=== PATIENT | male | born 1965 | race Caucasian/White ===

== ENCOUNTER 2017-01-11 16:27 | Emergency (ER) | payer OTHER, MEDICARE ==
[~2017-01-11] VITALS: Ht 180.3 cm; Wt 88.5 kg
[~2017-01-11 16:27] MED LIST: ALPRAZOLAM1 MG PO; AMOXIL500 MG PO; ATIVAN1 MG PAS; ESOMEPRAZOLE MA40 MG PO; FOLIC ACID 1 MG PO; HYDROCODONE BIT PO; HYDROXYZINE50 MG PO; JANUVIA 50MG50 MG; LANTUS INS100 UNITS/ SC; MEDROL4 M2 PO; METFORMIN HCL500 MG; MULTIVITAMIN1 TAB PO; NEURONTIN100 MG PO; NEURONTIN300 M1 PO; NORCO 325 MG-101 TAB PO; NORCO 5-325 TA1 EACH PO; NOVOLOG FLEX100 U/ML SC; NOVOLOG100 U/ML SC; TRAMADOL50 MG PO; TRAZODONE100 MG PO; Theragran Vitamins PO; VICODIN5-300 PO; VITAMIN B1100 MG PO; XANAX 0.5MG TA0.5 MG PO
[2017-01-11 18:40] LABS: ABSOLUTE BASOPHIL COUNT 0 /CUMM (0.0-0.2); ABSOLUTE EOSINOPHIL COUNT 0.3 /CUMM (0.0-0.7); ABSOLUTE GRANULOCYTE CT 7.3 /CUMM (1.4-6.5); ABSOLUTE LYMPH COUNT 3.1 /CUMM (1.2-3.4); ABSOLUTE MONOCYTE COUNT 0.8 /CUMM (0.10-0.60); BASOPHIL % 0.4 % (0.0-2.0); EOSINOPHIL % 2.8 % (0-5); GRANULOCYTE % 62.5 % (42.2-75.2); MEAN CORPUSCULAR HGB 31.5 PG (27.0-31.0); MEAN CORPUSCULAR HGB CONC 34.3 G/DL (33.0-37.0); MEAN CORPUSCULAR VOLUME 91.9 FL (80.0-94.0); MEAN PLATELET VOLUME 7.3 FL (7.4-10.4); PLATELET COUNT 297 /CUMM (130-400); RBC DISTRIBUTION WIDTH 12.8 % (11.5-14.5); RED BLOOD CELL CT 4.79 /CUMM (4.70-6.10); WHITE BLOOD CELL COUNT 11.6 /CUMM (4.8-10.8)
--- NOTE | 2017-01-11 18:41 | ED PSYCHIATRIC COMPLAINT ---
History of Present Illness General Chief Complaint: Psychiatric Related Complaint Stated Complaint: BIBA FOR PSYCH EVAL, ETOH Source: patient Exam Limitations: no limitations Vital Signs & Intake/Output Vital Signs & Intake/Output Vital Signs Date Time Temp Pulse Resp B/P Pulse O2 O2 Flow FiO2 Ox Delivery Rate 01/11 1934 96.9 99 20 121/72 01/11 1934 96.9 99 20 121/72 95 Room Air 01/11 1700 96.9 115 18 149/88 01/11 1653 96.9 115 18 149/88 95 Room Air Allergies Coded Allergies: codeine (Mild, RASH 12/25/15) Reconcile Medications Esomeprazole Magnesium 40 MG CAPSULE.DR 1 CAP PO BID GI (Reported) Gabapentin (Neurontin) 300 MG CAPSULE 1 CAP PO QHS PRN ARM/SHOULDER PAIN Gabapentin (Neurontin) 100 MG CAP 100 MG PO Q8 nueropathic pain Hydrocodone/Acetaminophen (Sunshine 5-325 Tablet) 1 EACH TABLET 1-2 TAB PO Q6P PRN PAIN Hydroxyzine Hydrochloride (Hydroxyzine) 50 MG TAB 1 TAB PO TID ANXIETY ( Reported) Insulin Aspart, Recombinant (Novolog) 100 U/ML JAZMINE 0 UNITS SC TIDAC GLUCOSE CONTROL (Reported) BLOOD SUGAR # OF UNITS < 80 NONE 80-150 NONE 151-200 1 UNIT 201-250 2 UNITS 251-300 3 UNITS 301-350 4 UNITS 351-400 6 UNITS >400 8 UNITS and call Insulin-Lantus (Lantus Insulin) 100 UNITS/ML NYA 30 U SC QHS DIABETES Methylprednisolone. 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 PT STS HE DRANK ABOUT 2 BEERS AND 3 SHOTS TODAY AND GOT INTO AN [employer] [place] SOMEONE AND PD WAS CALLED AND HIS MOM WAS NOTIFIED AND ALL WAS SETTLED WITH PD. PT SUSTAINED A LAC TO HIS RT LOWER GUMS, LEFT RESTORATIONIST AND LT INNER EAR FROM [employer]. PT STS HE CAME IN TO SPEAK WITH CRISIS VOLUNTARILY AND NOT HERE FOR ANY OF HIS OTHER SYMPTOMS WHICH INCLUDE A BLOOD SUGAR OF 360 OM FIELD. PT ARRIVES A/O X3 AND STS PAIN IS LESS THAN A 3/10 AND HIS ONLY COMPLAINTS IS WANTING TO SPEAK TO CRISIS. Triage Nurses Notes Reviewed? yes HPI: Patient presents for evaluation of worsening anxiety over the past 3-4 weeks. Patient states he has gotten into trouble with his family the cords and the police. He states that everybody has been "telling him to stay". He denies SI or HI. He denies drug use but admits to alcohol use (last alcohol beverage at about 12:00 today). Because he has been drinking he stopped his medications for anxiety. Past History Travel History Traveled to [place] past 21 day No Medical History Any Pertinent Medical History? see below for history Neurological: NONE EENT: NONE Cardiovascular: NONE Respiratory: NONE Gastrointestinal: NONE Hepatic: NONE Renal: NONE (iddm) Musculoskeletal: chronic back pain Psychiatric: alcohol dependence, anxiety and depression in the setting of substance abuse. Endocrine: diabetes Blood Disorders: NONE Cancer(s): NONE MARBLE COPER/Reproductive: NONE History of MRSA: No History of VRE: No History of CDIFF: No Surgical History Surgical History: N RIGHT KNEE REPLACEMENT TOTAL HIP REPLACEMENT (HIP Surgery, Knee surgery) Psychosocial History Who do you live with Mother Services at Home None What is your primary language Swedish Tobacco Use: Current Daily Use Daily Tobacco Use Amount/Type: => 5 Cigarettes daily ETOH Use: alcoholic Illicit Drug Use: marijuana Family History Family History, If Any: MOTHER FH: diabetes mellitus Hx Contributory? No Review of Systems Review of Systems Constitutional: Reports: no symptoms. EENTM: Reports: no symptoms. Respiratory: Reports: no symptoms. Cardiovascular: Reports: no symptoms. GI: Reports: no symptoms. Genitourinary: Reports: no symptoms. Musculoskeletal: Reports: no symptoms. Skin: Reports: no symptoms. Neurological/Psychological: Reports: see HPI. Hematologic/Endocrine: Reports: no symptoms. Immunologic/Allergic: Reports: no symptoms. All Other Systems: Reviewed and Negative Physical Exam Physical Exam General Appearance: see below Neurological/Psychiatric: see below Comments: General: Alert, calm, cooperative, faint EtOH-like odor Head: Normocephalic, atraumatic Eyes: Normal inspection, no nystagmus, EOMI Ears: Normal inspection Nose: Normal inspection Throat: Moist mucosa Neck: Supple, no goiter Heart: Regular rate and rhythm, no murmurs rubs or gallops Lungs: Clear to auscultation bilaterally with good air entry Abdomen: Soft nontender nondistended, normal bowel sounds Chest: Nontender Extremities: Normal range of motion grossly, no tremors present, no cyanosis clubbing or edema of the upper extremities Neurologic: cranial nerves II through XII grossly intact, speech clear, gait normal Psychiatric: No apparent delusions or hallucinations, no pressured speech or thought blocking SAD PERSONS Done? patient not suicidal Progress Differential Diagnosis: drug intoxication, depression Plan of Care: Orders Procedure Date/time Status ED CRISIS PSYCH CONSULT 01/12 1840 Active URINE DRUGS OF ABUSE 01/11 1817 Complete ETHANOL 01/11 1817 Complete COMPREHENSIVE METABOLIC PANEL 01/11 1817 Complete CBC WITHOUT DIFFERENTIAL 01/11 1817 Complete Laboratory Tests 01/11/171824: Anion Gap 13, Estimated GFR > 60, BUN/Creatinine Ratio 20.0, Glucose 200 H, Calcium 9.2, Total Bilirubin 0.4, AST 22, ALT 26, Alkaline Phosphatase 60, Total Protein 7.4, Albumin 4.3, Globulin 3.1, Albumin/Globulin Ratio 1.4, CBC w Diff NO MAN DIFF REQ, RBC 4.79, MCV 91.9, MCH 31.5 H, RDW 12.8, MPV 7.3 L, Gran % 62.5, Lymphocytes % 27.0, Monocytes % 7.3, Eosinophils % 2.8, Basophils % 0.4, Absolute Granulocytes 7.3 H, Absolute Lymphocytes 3.1, Absolute Monocytes 0.8 H, Absolute Eosinophils 0.3, Absolute Basophils 0, PUBS MCHC 34.3, Serum Alcohol 292.0 01/11/171817: Urine Opiates Screen < 100.00, Methadone Screen < 40, Barbiturate Screen < 60, Ur Phencyclidine Scrn < 6.00, Amphetamines Screen < 100, U Benzodiazepines Scrn < 85, Urine Cocaine Screen < 50, Urine Cannabis Screen < 5.00 Comments: 01/11/2017 9:05:35 PM Kee is now clinically sober with clear speech and stable gait. He has decided to go home and is repeatedly declined evaluation by crisis at this time. He does not feel he needs any more services here in the emergency department. He has phoned his mother (I watched him dial the phone and he did so accurately and briskly), who feels comfortable with him returning home so long his he goes straight to bed. He will take a taxi home. Departure Departure Disposition: HOME OR SELF CARE Condition: Stable Clinical Impression Primary Impression: Alcohol intoxication Qualifiers: Complication of substance-induced condition: uncomplicated Qualified Code: F10.120 - Alcohol abuse with intoxication, uncomplicated Secondary Impressions: Stress Referrals: TYRELL DING,TERRELL Valera (PCP/Family) OUTPATIENT PSYCHIATRY Additional Instructions: Wheezing your alcohol use. Continue your outpatient detox program. Follow-up with your primary care physician this week for reevaluation. Contact the [facility] outpatient psychiatry department to arrange for a follow-up appointment as soon as possible. Return if any concerns or sudden worsening. Departure Forms: Customer Survey General Discharge Information
[2017-01-11 21:43] VITALS: BP 139/93
== END 2017-01-11 21:45 ==
LOC: ERH 16:27
PROVIDERS: Emergency Medicine
DX: F10.129 Alcohol abuse with intoxication, unspecified (principal); F43.9 Reaction to severe stress, unspecified
CPT/HCPCS: 80307; G0480